=== PATIENT | female | born 2000 | race Caucasian/White ===

== ENCOUNTER 2022-07-13 19:32 | Emergency (ER) | payer SELFPAY ==
[~2022-07-13] VITALS: Ht 162.5 cm; Wt 50.6 kg
--- NOTE | 2022-07-13 20:10 | ED EENT ---
History of Present Illness General Chief Complaint: Dental Problems/Pain Stated Complaint: DENTAL PAIN History of Present Illness Date Seen by Provider: Jul 13, 2022 Time Seen by Provider: 19:59 Initial Comments 22-year-old female is here with complaints of left lower tooth pain and left- sided facial swelling which began today morning. Patient has a dental appointm ent set for Friday. Denies fever, shortness of breath or oral swelling. Patient is speaking in clear sentences and no airway compromise indicated. Allergies and Home Medications Allergies Coded Allergies: No Known Drug Allergies (Unverified , 07/13/22) Patient Home Medication List Home Medication List Reviewed: Yes Review of Systems Review of Systems Constitutional: no symptoms reported Eyes: No Symptoms Reported Ears: No Symptoms Reported Nose: no symptoms reported Mouth: other (Dental pain) Throat: no symptoms reported Respiratory: no symptoms reported Cardiovascular: no symptoms reported Gastrointestinal: no symptoms reported Musculoskeletal: no symptoms reported Skin: no symptoms reported Neurological: No Symptoms Reported Hematologic/Lymphatic: No Symptoms Reported Immunological/Allergic: no symptoms reported Physical Exam Vital Signs Vital Signs - First Documented 07/13/22 19:55 Temp 37.0 Pulse 75 Resp 16 B/P (MAP) 118/80 (93) O2 Delivery Room Air Height, Weight, BMI Height: '" Weight: lbs. oz. kg; BMI Method: General Appearance: WD/WN, mild distress Mouth/Throat: dental tenderness, other (Left lower dental caries, multiple, especially molar, with minimal gum swelling. Minimal swelling on left lower jaw, nontender to palpation.) Neck: non-tender, full range of motion, supple Respiratory: lungs clear Neurologic/Psychiatric: alert, oriented x 3 Skin: normal color Progress/Results/Core Measures Results/Orders My Orders Orders - ELGIN PALAFOX MD Ketorolac Injection (Toradol Injection) (07/13/22 20:45) Amoxicillin/Clavulanate Tablet (Augmenti (07/13/22 20:40) Vital Signs/I&O 07/13/22 19:55 Temp 37.0 Pulse 75 Resp 16 B/P (MAP) 118/80 (93) O2 Delivery Room Air Progress Progress Note : Progress Note 1. DENTAL CARIES/ GINGIVITIS: -Toradol IM stat in ER -Augmentin prescription twice daily for 7 days, with first tab given in ER -Patient has dental appointment on Friday set. Advised patient to keep appointment -Ibuprofen and Tylenol as needed for pain -Advised to stop smoking Departure Impression Primary Impression: Dental caries Additional Impression: Gingivitis Disposition: HOME, SELF-CARE Condition: Stable Departure-Patient Inst. Referrals: NO,LOCAL PHYSICIAN (PCP/Family) Primary Care Physician Patient Instructions: Dental Pain (DC), Gingivitis (DC) Add. Discharge Instructions: -Augmentin prescription twice daily for 7 days, with first tab given in ER -Patient has dental appointment on Friday set. Advised patient to keep appointment -Ibuprofen and Tylenol as needed for pain -Advised to stop smoking All discharge instructions reviewed with patient and/or family. Voiced understanding. Scripts Amoxicillin/Potassium Clav (Amox Tr-K Clv 875-125 mg Tab) 875 Mg-125 Mg Tablet 1 EACH PO BID for 7 Days, #14 TAB Prov: ELGIN PALAFOX MD 07/13/22 ELGIN PALAFOX MD Jul 13, 2022 20:10
[2022-07-13] MEDS ORDERED: AUGMENTIN 875 MG TAB (AMOXICILLIN/CLAVULANATE) PO STA (20:40)
[2022-07-13] MEDS ORDERED: KETOROLAC 30 MG/ML VIAL IM ONE (20:45)
[2022-07-13] MEDS ORDERED: AMOX1TAB12 PO (20:53)
[2022-07-13 20:58] VITALS: BP 116/78
== END 2022-07-13 20:58 | disposition home or self-care (01) ==
LOC: ER FS 19:38
DX: K02.9 Dental caries, unspecified (principal); K05.10 Chronic gingivitis, plaque induced
CPT/HCPCS: 99284